=== PATIENT | male | born 1965 | race Caucasian/White ===

== ENCOUNTER 2022-03-31 12:48 | Observation (INO) ==
[2022-03-31 13:44] LABS: Basophils # (auto) 0.04 K/uL (0-0.2); Basophils % (auto) 0.6 %; Eosinophils # (auto) 0.15 K/uL (0-0.50); Eosinophils % (auto) 2.1 %; Hematocrit (blood only) 44.8 % (40.1-51.0); Hemoglobin 15.7 g/dl (14.0-18.0); Immature Granulocytes # (auto) 0.04 K/uL (0.00-0.02); Immature Granulocytes % (auto) 0.6 %; Lymphocytes % (auto) 18.2 %; Mean Corpuscular Hemoglobin 31.6 pg (25.0-34.0); Mean Corpuscular Volume 90.1 fL (80.0-100.0); Mean Platelet Volume 8.6 fL (9.4-12.4); Monocytes # (auto) 0.46 K/uL (0.24-0.82); Monocytes % (auto) 6.4 %; Neutrophils # (auto) 5.16 K/uL (1.4-6.5); Neutrophils % (auto) 72.1 %; Platelet Count 256 K/uL (130-400); RDW Coefficient of Variation 11.4 % (11.5-14.5); RDW Standard Deviation 36.8 fL (36.4-46.3); Red Blood Count 4.97 M/uL (4.63-6.08); White Blood Count 7.15 K/ul (4.8-10.8)
[2022-03-31 13:54] LABS: Partial Thromboplastin Time 27.5 Seconds (21.0-31.0); Prothrombin Time 10.5 Seconds (9.0-12.0)
[2022-03-31 14:09] LABS: Albumin Globulin Ratio 1.2 (0.9-2); Albumin Level 4.2 gm/dl (3.4-5.0); BUN Creatinine Ratio 18.3 (10-20); Bilirubin,Total 1.1 mg/dl (0.2-1.0); Calcium 9.7 mg/dl (8.5-10.1); Creatinine Clr Calc Pharmacy 79.7 ml/min; Est GFR (African American) 81.4 ml/min; Est GFR (Non-African American) 70.3 ml/min; Globulin 3.5 gm/dl (2.5-4.0); Potassium 4.3 mmol/L (3.5-5.1); Total Protein 7.7 gm/dl (6.0-8.3)
--- NOTE | 2022-03-31 14:34 | Emergency Department Note ---
Impression & Plan Left leg swelling, DVT (deep venous thrombosis), Fracture of left foot ED Provider Note NAME: MATT COLON AGE: 57 SEX: M : 1965 ARRIVES VIA: Walk-In INFORMANT: [Patient] ED PROVIDER(S): [Jayce Streeter MD] CHIEF COMPLAINT: The patient is a 57-year-old male who states that just over 2 weeks ago he fractured his fifth metatarsal on the left. He has been in a walking boot. Today, his leg was noted to be markedly swollen at the orthopedics office, he was sent for an outpatient ultrasound which showed an extensive left lower extremity DVT. Patient has never had a clot before however, his brother just had a DVT and PE. The patient is not short of breath, there has been no cough or cold or congestion. He has occasionally noticed some cramping in the left calf. HISTORY OF PRESENT ILLNESS: REVIEW OF SYSTEMS: See HPI for pertinent positives and negatives. A total of ten systems were reviewed and were otherwise negative. PMHx/PSHx: See Below SOCIAL HISTORY: See Below. PHYSICAL EXAM: GENERAL: Patient is in no acute distress. HEENT: No acute trauma, normocephalic atraumatic, mucous membranes moist, no nasal congestion, no scleral icterus. NECK: No stridor, no adenopathy, no meningismus, trachea is midline. LUNGS: Clear to auscultation bilaterally, no wheeze, no rhonchi, breath sounds equal. HEART: Without murmurs gallops or rubs, regular rate and rhythm. ABDOMEN: Soft, nontender, bowel sounds positive, no peritonitis. EXTREMITIES: No cyanosis. Significant edema of the left lower extremity when compared to the right. There is some older contusion noted to the left foot at the base of the toes. NEUROLOGIC: Oriented x 3, no acute motor or sensory deficits, no focal weakness. SKIN: No rash, no jaundice, no diaphoresis. DIFFERENTIAL DIAGNOSIS: DVT, coagulopathy, PE, cellulitis, lymphadenitis, anemia, renal or liver failure, among others. EMERGENCY DEPARTMENT COURSE/PROCEDURES: MEDICAL DECISION MAKING: There is no leukocytosis or concerning anemia. There is a normal platelet count. No coagulopathy. No electrolyte abnormality or renal failure. No concerning liver enzyme elevation. COVID test returned negative. On exam, the patient did have left lower extremity edema. I was able to review the ultrasound from earlier today, he had extensive DVT in the left lower extremity. Given the extent of the DVT, given his brother's recent DVT and PE, I do think a hospital stay would be warranted. The patient was placed on IV heparin--he was given a bolus and drip. I talked to the patient about his findings, I spoke with case management, the on-call hospitalist was consulted. 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 Allergies Allergies Allergy/AdvReac Type Severity Reaction Status Date / Time No Known Allergies Allergy Verified 03/31/22 14:51 Home Meds Home Medications Medication Instructions Recorded Confirmed ibuprofen 200 mg tablet 400 mg PO DIRECTED PRN Pain 03/31/22 03/31/22 Results & Data (ED) Vital Signs Vital Signs - 24 hr 03/31/22 12:53 Temperature 36.7 C Temperature Source Temporal Artery Scan Pulse Rate 63 Respiratory Rate 18 Respiratory Effort / Characteristics Non-Labored Respiratory Depth Normal Respiratory Pattern Regular Blood Pressure 137/95 Blood Pressure Mean 109 Blood Pressure Position Sitting Pulse Oximetry 99 Oxygen Delivery Method Room Air Sepsis Recent Fever Within 48 Hours No Sepsis New/Unexplained Change in Mental Status No Sepsis Action Taken by Nursing No Action Required Home Medications Current Medication List: was personally reviewed by me Laboratory Data Attestation: I reviewed the patient's lab results. Result diagrams: 03/31/22 13:18 03/31/22 13:18 Lab Results 03/31/22 03/31/22 03/31/22 Range/Units 13:18 13:18 13:18 WBC 7.15 (4.8-10.8) K/ul RBC 4.97 (4.63-6.08) M/uL Hgb 15.7 (14.0-18.0) g/dl Hct 44.8 (40.1-51.0) % MCV 90.1 (80.0-100.0) fL MCH 31.6 (25.0-34.0) pg MCHC 35.0 (32.0-36.0) g/dL RDW Std Deviation 36.8 (36.4-46.3) fL RDW Coeff of Marquez 11.4 L (11.5-14.5) % Plt Count 256 (130-400) K/uL MPV 8.6 L (9.4-12.4) fL Immature Gran % (Auto) 0.6 % Neut % (Auto) 72.1 % Lymph % (Auto) 18.2 % Camden % (Auto) 6.4 % Eos % (Auto) 2.1 % Baso % (Auto) 0.6 % Neut # (Auto) 5.16 (1.4-6.5) K/uL Lymph # (Auto) 1.30 (1.2-3.4) K/uL Camden # (Auto) 0.46 (0.24-0.82) K/uL Eos # (Auto) 0.15 (0-0.50) K/uL Baso # (Auto) 0.04 (0-0.2) K/uL Immature Gran # (Auto) 0.04 H (0.00-0.02) K/uL PT 10.5 (9.0-12.0) Seconds INR 1.0 (0.9-1.1) APTT 27.5 (21.0-31.0) Seconds PTT Ratio 1.0 Sodium 138 (136-145) mmol/L Potassium 4.3 (3.5-5.1) mmol/L Chloride 103 (98-107) mmol/L Carbon Dioxide 31 (21-32) mmol/L Anion Gap 4 (3-11) BUN 21 (6-23) mg/dl Creatinine 1.15 (0.6-1.4) mg/dl Est Cr Clr Drug Dosing 79.7 ml/min Est GFR ( Amer) 81.4 ml/min Est GFR (Non-Af Amer) 70.3 ml/min BUN/Creatinine Ratio 18.3 (10-20) Glucose 122 H (70-99(Fasting)) mg/dl Calcium 9.7 (8.5-10.1) mg/dl Total Bilirubin 1.1 H (0.2-1.0) mg/dl AST 32 (13-39) U/L ALT 14 (7-52) U/L Alkaline Phosphatase 79 (34-104) U/L Total Protein 7.7 (6.0-8.3) gm/dl Albumin 4.2 (3.4-5.0) gm/dl Globulin 3.5 (2.5-4.0) gm/dl Albumin/Globulin Ratio 1.2 (0.9-2) SARS-CoV-2, RNA, NAAT (NEGATIVE) 03/31/22 Range/Units 15:20 WBC (4.8-10.8) K/ul RBC (4.63-6.08) M/uL Hgb (14.0-18.0) g/dl Hct (40.1-51.0) % MCV (80.0-100.0) fL MCH (25.0-34.0) pg MCHC (32.0-36.0) g/dL RDW Std Deviation (36.4-46.3) fL RDW Coeff of Marquez (11.5-14.5) % Plt Count (130-400) K/uL MPV (9.4-12.4) fL Immature Gran % (Auto) % Neut % (Auto) % Lymph % (Auto) % Cam[place] % (Auto) % Eos % (Auto) % Baso % (Auto) % Neut # (Auto) (1.4-6.5) K/uL Lymph # (Auto) (1.2-3.4) K/uL Camden # (Auto) (0.24-0.82) K/uL Eos # (Auto) (0-0.50) K/uL Baso # (Auto) (0-0.2) K/uL Immature Gran # (Auto) (0.00-0.02) K/uL PT (9.0-12.0) Seconds INR (0.9-1.1) APTT (21.0-31.0) Seconds PTT Ratio Sodium (136-145) mmol/L Potassium (3.5-5.1) mmol/L Chloride (98-107) mmol/L Carbon Dioxide (21-32) mmol/L Anion Gap (3-11) BUN (6-23) mg/dl Creatinine (0.6-1.4) mg/dl Est Cr Clr Drug Dosing ml/min Est GFR ( Amer) ml/min Est GFR (Non-Af Amer) ml/min BUN/Creatinine Ratio (10-20) Glucose (70-99(Fasting)) mg/dl Calcium (8.5-10.1) mg/dl Total Bilirubin (0.2-1.0) mg/dl AST (13-39) U/L ALT (7-52) U/L Alkaline Phosphatase (34-104) U/L Total Protein (6.0-8.3) gm/dl Albumin (3.4-5.0) gm/dl Globulin (2.5-4.0) gm/dl Albumin/Globulin Ratio (0.9-2) SARS-CoV-2, RNA, NAAT NEGATIVE (NEGATIVE) Administered Medications Heparin Sodium/Dextrose (Heparin Sodium/Dextrose) 25,000 units in 500 mls @ 32 mls/hr IV .[id number] [id number]; Protocol Stop: 04/30/22 14:59 Last Titration: 03/31/22 21:49 Dose: 1,600 units/hr, 32 mls/hr Documented By: MARCIAL Co-signed By: DIANA Admin: 03/31/22 15:15 Dose: 1,450 units/hr, 29 mls/hr Documented By: TOBIAS Co-signed By: CHELLY Discontinued Medications Heparin Sodium (Porcine) (Heparin Sod (Porcine) 1000 Unit/Ml) 6,000 units IV NOW ONE Stop: 03/31/22 15:16 Last Admin: 03/31/22 15:17 Dose: 6,000 units Documented By: TOBIAS Co-signed By: CHELLY Heparin Sodium/Dextrose (Heparin Iv Adult Wt-Based Standard With Bolus Protocol) 1 each IV NOW STA; Protocol Stop: 03/31/22 14:44 Last Admin: 03/31/22 15:13 Dose: 1 each Documented By: TOBIAS Imaging Data Radiologist's Impression: LEFT LOWER EXTREMITY VENOUS DOPPLER HISTORY: Left leg swelling. eval blood clot COMPARISON STUDY: None. FINDINGS: The left common femoral vein is patent. The mid to distal left superficial femoral vein, popliteal vein, posterior tibial veins, peroneal veins, and sural veins demonstrate occlusive thrombus. Anterior tibial veins are patent. IMPRESSION: Extensive DVT within the left lower extremity as described above. Discharge Plan Visit Data Chief Complaint: Leg Injury/Pain Stated Complaint: DR REF FOR BLOOD CLOTS L LEG ED Provider: Jayce Streeter Discharge Problem: Left leg swelling, DVT (deep venous thrombosis), Fracture of left foot Patient Disposition: Admitted As Inpatient Condition: Good Discharge Instructions Interventions: ED Discharge Assessment Last Done: 03/31/22 18:16
[2022-03-31] MEDS ORDERED: Heparin IV Adult Wt-Based Standard WITH Bolus Protocol IV STA (14:43)
[2022-03-31] MEDS ORDERED: HEPARIN SOD (PORCINE) 1000 UNIT/ML IV ONE ×2 (14:59→15:15)
[2022-03-31] MEDS ORDERED: Heparin IV Adult Wt-Based Standard WITH Bolus Protocol IV SCH (15:00)
[2022-03-31] MEDS: HEPARIN SODIUM/DEXTROSE 25,000 UNITS/500 ML BAG IV SCH (15:15)
--- NOTE | 2022-03-31 16:42 | History & Physical Report ---
Date of Service March 31, 2022 Assessment & Plan (1) Deep vein thrombosis: Plan: Provoked but significant family history - consider hypercoagulable testing after treatment course Given extensive DVT would recommend 6 months of treatment Heparin standard IV bolus and drip Consult vascular surgery Plan VTE prophylaxis -Heparin IV Diet -regular Disposition -observation to [facility] telemetry Admission and Anticipated Discharge Date Admission Date: March 31, 2022 History of Present Illness Chief Complaint: DVT Primary Care Provider: Juan Pablo Lopez iGancarlo Plascencia is a 57 year old male who presents to the ER from his orthopedic clinic due to extensive clots in his left leg. He reports breaking his fifth metatarsal 2.5 weeks ago. Since then he has been managed in a boot, initially n onweightbearing. No prior DVT or PE. He notes a significant family history of his brother who had a saddle pulmonary embolism earlier this year. Allergies Allergy/AdvReac Type Severity Reaction Status Date / Time No Known Allergies Allergy Verified 03/31/22 14:51 Home Medications Medication Instructions Recorded Confirmed Type ibuprofen 200 mg tablet 400 mg PO DIRECTED PRN Pain 03/31/22 03/31/22 History Past Med/Surg History Medical History Fracture of 5th metatarsal Social History Smoking Status: Never smoker Hx Alcohol Use: Yes Alcohol type: beer Hx Substance Use: No Preferred Language: Croatian Communication Ability: Effective Connection Worker Required: No Beliefs That Will Affect Care: None Current Living Situation: Spouse Other Information That Helps Us Care for You: No Feels Safe at Home: Yes Safety Concerns: Feels Safe At This Time Assistive Devices: Other Assistive Devices Comment: Crutches to help get around due to broken foot. Review of Systems Review of Systems: All systems reviewed & are unremarkable except as noted in HPI & below Physical Exam Constitutional: WD/WN, vitals as above ENMT: external ear and nose normal, oropharynx normal Respiratory: normal respiratory effort, lungs clear to auscultation Cardiovascular: Rate/Rhythm: regular rate and regular rhythm Extremities: + pedal edema (2+ LLE ) Gastrointestinal (Abdomen): normal bowel sounds, soft, nontender, no hepatosplenomegaly Musculoskeletal: no cyanosis or clubbing, extremities motor strength 5/5 Skin: no rashes, warm and dry (no phlegmasia cerulea dolens) Neurologic: moves all extremities and awake; not confused Psychiatric: A+Ox3, euthymic affect Results & Data Results & Data ([facility]) Vital Signs (Past 12 Hours) Vital Signs Temp Pulse Resp BP Pulse Ox O2 Del Method 03/31/22 12:53 36.7 C 63 18 137/95 99 Room Air Laboratory Results Abnormal lab results 03/31/22 03/31/22 Range/Units 13:18 13:18 RDW Coeff of Marquez 11.4 L (11.5-14.5) % MPV 8.6 L (9.4-12.4) fL Immature Gran # (Auto) 0.04 H (0.00-0.02) K/uL Glucose 122 H (70-99(Fasting)) mg/dl Total Bilirubin 1.1 H (0.2-1.0) mg/dl Diagnostic Findings LEFT LOWER EXTREMITY VENOUS DOPPLER HISTORY: Left leg swelling. eval blood clot COMPARISON STUDY: None. FINDINGS: The left common femoral vein is patent. The mid to distal left superficial femoral vein, popliteal vein, posterior tibial veins, peroneal veins, and sural veins demonstrate occlusive thrombus. Anterior tibial veins are patent. IMPRESSION: Extensive DVT within the left lower extremity as described above. Medications Administered ER medications given: Heparin standard bolus IV and drip Code Status & VTE Plan Code Status Full VTE Prophylaxis Plan VTE Prophylaxis will be ordered: Yes PG Care Time/CCT Total # of Minutes Spent Total Time Spent with Patient: Total time spent is greater than 50% in coordination of care (as documented) at patient's floor/unit and/or counseling patient: Coding Level of Care Code INT OBSERVATION CARE 50M LVL 2 Diagnoses Deep vein thrombosis I82.409
[2022-03-31] MEDS ORDERED: ACETAMINOPHEN 325 MG TAB PO PRN (18:16)
[2022-03-31] MEDS ORDERED: FLUARIX QUADRIVALENT 0.5 ML SYR IM ONE (20:43)
[2022-03-31 22:13] LABS: Partial Thromboplastin Ratio 2.7
[2022-03-31 22:41] LABS: Partial Thromboplastin Time 74.9 Seconds (21.0-31.0)
[2022-04-01 06:18] LABS: Basophils # (auto) 0.06 K/uL (0-0.2); Eosinophils # (auto) 0.27 K/uL (0-0.50); Eosinophils % (auto) 4.3 %; Hematocrit (blood only) 41.6 % (40.1-51.0); Hemoglobin 14.4 g/dl (14.0-18.0); Immature Granulocytes # (auto) 0.02 K/uL (0.00-0.02); Immature Granulocytes % (auto) 0.3 %; Lymphocytes # (auto) 1.92 K/uL (1.2-3.4); Lymphocytes % (auto) 30.9 %; Mean Corpuscular Hemoglobin 30.8 pg (25.0-34.0); Mean Corpuscular Hgb Conc 34.6 g/dL (32.0-36.0); Mean Corpuscular Volume 89.1 fL (80.0-100.0); Mean Platelet Volume 8.5 fL (9.4-12.4); Monocytes # (auto) 0.58 K/uL (0.24-0.82); Monocytes % (auto) 9.3 %; Neutrophils # (auto) 3.37 K/uL (1.4-6.5); Neutrophils % (auto) 54.2 %; Platelet Count 226 K/uL (130-400); RDW Coefficient of Variation 11.2 % (11.5-14.5); RDW Standard Deviation 36.3 fL (36.4-46.3); Red Blood Count 4.67 M/uL (4.63-6.08); White Blood Count 6.22 K/ul (4.8-10.8)
[2022-04-01 06:40] LABS: BUN Creatinine Ratio 16.5 (10-20); Calcium 8.9 mg/dl (8.5-10.1); Est GFR (Non-African American) 80.3 ml/min; Potassium 4.1 mmol/L (3.5-5.1)
[2022-04-01 06:46] LABS: Partial Thromboplastin Ratio 2.8
[2022-04-01 06:48] LABS: Partial Thromboplastin Time 76.5 Seconds (21.0-31.0)
[2022-04-01] MEDS: HEPARIN SODIUM/DEXTROSE 25,000 UNITS/500 ML BAG IV SCH ×2 (08:26→17:21)
--- NOTE | 2022-04-01 11:59 | Electrocardiogram Report ---
Test Reason : Blood Pressure : / mmHG Vent. Rate : 047 BPM Atrial Rate : 047 BPM P-R Int : 152 ms QRS Dur : 094 ms QT Int : 440 ms P-R-T Axes : 054 024 046 degrees QTc Int : 389 ms Sinus bradycardia Possible Left atrial enlargement Borderline ECG No previous ECGs available Confirmed by Delvin Muller ([id number]) on 04/01/2022 11:59:02 AM Referred By: Kyler Rodriguez Confirmed By:Erick Muller
[2022-04-01 13:31] LABS: Partial Thromboplastin Ratio 2.4
[2022-04-01] MEDS ORDERED: RIVAROXABAN 15 MG TAB PO ONE (17:00)
--- NOTE | 2022-04-01 17:03 | Discharge Summary ---
Date of Service April 01, 2022 Admission HPI Per Admitting Provider Giancarlo Plascencia is a 57 year old male who presents to the ER from his orthopedic clinic due to extensive clots in his left leg. He reports breaking his fifth metatarsal 2.5 weeks ago. Since then he has been managed in a boot, initially nonweightbearing. No prior DVT or PE. He notes a significant family history of his brother who had a saddle pulmonary embolism earlier this year. Principal Diagnosis LLE DVT Discharge Exam Vitals reviewed Gen: [AAOx3, NAD] HEENT: [anicteric sclerae, EOMI] CV: [RRR no mgr nl S1S2] Pulm: [CTAB no wcr] Abd: [+BS soft NT ND no masses or hernias] Ext: [LLE 1+ edema to knee, 2+ DP pulses] Skin: [no rashes, warm/dry] Neuro: [full strength throughout] Discharge Data Allergies Allergy/AdvReac Type Severity Reaction Status Date / Time No Known Allergies Allergy Verified 03/31/22 14:51 Consultations 03/31/22 14:56 ED Decision to Admit Stat 03/31/22 18:16 Consult Vascular Surgery Routine Hospital Course (1) Deep vein thrombosis: Provoked but significant family history - obtained hypercoagulable testing with the exception for antithrombin III, and lupus anticoagulant as he was already on heparin gtt Given extensive DVT would recommend 6 months of treatment and then would consider life long treatment if has inherited or acquired clotting disorder consider outpt Heme referral Heparin standard IV bolus and drip was given and then converted to Xarelto 15mg po bid x 21 days and then 20mg daily after that Consult vascular surgery appreciated-not good candidate for thrombolysis due to extensive DVT. Recommends RONEL hose 20-30 mmHg and f/u as outpt for venous insufficiency in future if needed Plan Dispo-dc to home Total Time Total Time Spent Total Time Spent (In Minutes): 35 min Discharge Plan Discharge Items Patient Disposition: Home - Self-Care Reason For Visit: EXTENSIVE DVT Discharge Diagnosis: Left lower extremity DVT Condition on Discharge: Good Activity: As commented below Bathing: No limitations Exercise Comment: You can do daily activities and walking but no bike riding x 1 week Non-emergency contact: Primary Care Provider Call non-emergency contact if: you have any medication questions, your symptoms worsen, your pain is not controlled and your pain is worsening Follow-up/Referrals: Juan Pablo Lopez [Primary Care Provider] - (Follow up within 1-2 weeks) Diet: Regular Addtl Attending Provider Instructions: Please take the blood thinner as prescribed. It is recommended that you stay on it for at least 6 months. Your doctor can follow up on the blood work results sent to determine if you have an inherited or acquired clotting disorder. This may determine if you need to stay on life long blood thinners for prevention. If you develop any issues with bleeding or experience head trauma nd have a headache, please come to the hospital to get checked out right away. It is recommended that you avoid high risk activities for trauma while on blood thinners. If you develop chest pain, shortness of breath, lightheadedness, or pass out, please go to the hospital right away as these can be signs of a blood clot in the lung. As discussed with the Vascular Surgeon, you should wear compression stockings especially if you will be sitting or on your feet for long periods of time to keep the swelling down. Pending Studies at Discharge: Yes Studies:: Hypercoagulable workup studies Stand-Alone Forms: [facility] Medications and DC Order Prescriptions: New acetaminophen 325 mg Tablet 650 mg PO Q4H PRN (Reason: pain) Qty: 30 0RF Rx Instructions: OTC Xarelto 15 mg tablet 15 mg PO BID 21 Days Qty: 41 0RF Rx Instructions: must administer with a meal/food Xarelto 20 mg tablet 20 mg PO PM Qty: 30 0RF Rx Instructions: must administer with evening meal Discontinued ibuprofen 200 mg Tablet 400 mg PO DIRECTED PRN (Reason: Pain) Discharge Orders: Discharge Order (Routine); Ordered 04/01/22 Ordered By: Khadijah Cotto Admission Data Admit Date/Time: 03/31/22 15:26 Attending Provider: Khadijah Cotto Admit Provider: Anant Wilson Primary Care Provider: Juan Pablo Lopez Other Providers: Anant Wilson ; Jose Antonio Morales Coding Level of Care Code 98948 OBS Care - Discharge Diagnoses Deep vein thrombosis I82.409
--- NOTE | 2022-04-02 11:34 | Communication Note ---
Date of Service: April 02, 2022 At the time of seeing the patient he was ready to be discharged. This patient is a 57-year-old male who has a family history of DVT and pulmonary emboli. He has not had any previous deep venous thrombosis episodes. He did have a splint on his foot for sprain. He developed a DVT in his left lower extremity which was fairly extensive most likely secondary to the splint. In reviewing his chart and talking to the patient he needs to have anticoagulation for approximately 3 to 6 months. He also needs to wear compression stocking especially if standing and sitting for long periods of time. We will be happy to see him and reevaluate him if he develops edema of the left lower extremity with venous insufficiency. Thank you very much for letting us participate in the care of this patient.
[2022-04-05 07:36] LABS: Anti Cardiolipin Ab IgG <2.0 GPL-U/mL; B2 Glycoprotein IgG <2.0 U/mL (<20.0); B2 Glycoprotein IgM 7.7 U/mL (<20.0); Protein S Functional(Activity) 137 % normal (70-150)
[2022-04-07 00:42] LABS: Factor 5 Mutation NEGATIVE
== END 2022-04-01 19:09 | disposition home or self-care (01) ==
LOC: ED 12:48 → EDINP 12:48 → SUATTDRO 15:26 → 2N 18:16